=== PATIENT | female | born 1950 | race Caucasian/White ===

== ENCOUNTER → 2017-08-14 | Outpatient (CLI) | payer MEDICARE ==
[~2017-08-14] MED LIST: ALN70T; ASPI-586 PO; CALC1TAB94 PO; DULO30CA; E400C; EST.625T; ESTR1TAB24 PO; FEXO180T84 PO; FISH OIL; FLUO40CA PO; FLUT9.9S NSEACH; LTH300C; METO-387 PO; MRTZ15T; MULT-305 PO; OCUVITE; OMEG1CAP58 PO; PRV20T; TRAZ-28 PO
--- NOTE | 2017-08-15 09:30 | Diagnostic Imaging Report ---
Bilateral screening mammogram 2D views with tomosynthesis The current study was also evaluated with a Computer Aided Detection (CAD) system. INDICATION: Screening. No current complaints stated on the questionnaire. COMPARISON: 08/14/16 FINDINGS: The breasts are composed of scattered fibroglandular densities. Occasional punctate calcifications are seen. Allowing for technique and positional differences, no suspicious change is seen. IMPRESSION: No significant change. ACR BI-RADS Category 2: Benign findings. Result letter will be mailed to the patient. Note: At least 10% of breast cancer is not imaged by mammography. Dictated by: Dictated on workstation # [id number]
== END ==
LOC: RAD 09:31
PROVIDERS: ATTEND Nurse Practitioner
DX: Z12.31 Encounter for screening mammogram for malignant neoplasm of breast (principal)
CPT/HCPCS: 77067

== ENCOUNTER → 2017-10-01 | Outpatient (CLI) | payer MEDICARE ==
[2017-10-01 13:27] LABS: ABSOLUTE RETIC # 38 10e9/L (24-90); BASOPHILS % (AUTO) 1 % (0-10); EOSINOPHILS # (AUTO) 0.1 10^3/uL (0.0-0.3); EOSINOPHILS % (AUTO) 2 % (0-10); HEMATOCRIT 37 % (35-52); HEMOGLOBIN 12.3 G/DL (11.5-16.0); LYMPHOCYTES # (AUTO) 1.2 X 10^3 (1.0-4.0); LYMPHOCYTES % (AUTO) 33 % (12-44); MEAN CORPUSCULAR HEMOGLOBIN 30 PG (25-34); MEAN CORPUSCULAR HGB CONC 33 G/DL (32-36); MEAN CORPUSCULAR VOLUME 89 FL (80-99); MEAN PLATELET VOLUME 10.4 FL (7.4-10.4); MONOCYTES # (AUTO) 0.5 X 10^3 (0.0-1.0); MONOCYTES % (AUTO) 13 % (0-12); NEUTROPHILS # (AUTO) 1.8 X 10^3 (1.8-7.8); NEUTROPHILS % (AUTO) 51 % (42-75); PLATELET COUNT 268 10^3/uL (130-400); RED BLOOD COUNT 4.14 10^6/uL (4.35-5.85); RED CELL DISTRIBUTION WIDTH 13.1 % (10.0-14.5); RETICULOCYTE % 0.91 % (0.50-2.40); WHITE BLOOD COUNT 3.5 10^3/uL (4.3-11.0)
[2017-10-01 14:14] LABS: BAND NEUTROPHILS 0 %; BASOPHILS % (MANUAL) 1 %; EOSINOPHILS % (MANUAL) 3 %; LYMPHOCYTES % (MANUAL) 23 %; MONOCYTES % (MANUAL) 6 %; NEUTROPHILS % (MANUAL) 55 %; RBC MORPH NORMAL; REACTIVE LYMPHOCYTES 12 %
== END ==
LOC: LAB 13:10
PROVIDERS: ATTEND Internal Medicine
DX: D64.9 Anemia, unspecified (principal)
CPT/HCPCS: 36415; 85007; 85027; 85045

== ENCOUNTER → 2017-12-08 | Outpatient (CLI) | payer MEDICARE | LOC: CARD 12:23 | PROVIDERS: ATTEND Internal Medicine Cardiovascular Disease | DX: I35.0 Nonrheumatic aortic (valve) stenosis (principal); R00.1 Bradycardia, unspecified; I49.5 Sick sinus syndrome; E78.5 Hyperlipidemia, unspecified; Z95.0 Presence of cardiac pacemaker | CPT/HCPCS: 93306 ==

== ENCOUNTER 2018-08-03 05:52 | Outpatient (CLI) | payer MEDICARE ==
[~2018-08-03] VITALS: Ht 157.5 cm; Wt 61.2 kg
[~2018-08-03 05:52] MED LIST changes: +TRAZ-189 PO; -TRAZ-28 PO
[2018-08-03] MEDS ORDERED: BETA1TAB15 PO (14:32)
[2018-08-03] MEDS ORDERED: ATOR20TA66 PO (14:32)
[2018-08-03] MEDS ORDERED: LEVO5TAB28 PO (14:32)
[2018-08-03] MEDS ORDERED: [UNRECOGNIZED DRUG - CODE] PO (14:32)
[2018-08-07] MEDS ORDERED: PANT40TA2 PO (13:10)
== END 2018-08-03 14:35 | disposition home or self-care (01) ==
LOC: PREOP 05:52
PROVIDERS: ATTEND Surgery
DX: Z01.818 Encounter for other preprocedural examination (principal)

== ENCOUNTER 2018-08-07 11:00 | Day surgery (SDC) | payer MEDICARE ==
[~2018-08-07] VITALS: Ht 157.5 cm; Wt 61.2 kg
[~2018-08-07 11:00] MED LIST changes: +ATOR20TA66 PO; +BETA1TAB15 PO; +LEVO5TAB28 PO; +[UNRECOGNIZED DRUG - CODE] PO
[2018-08-07 11:10] VITALS: BP 120/70
[2018-08-07] MEDS ORDERED: NS IV 500 ML 500 ML IV PRN (11:14)
[2018-08-07] MEDS ORDERED: HURRICAINE EXT TUBE (BENZOCAINE) XX PRN (11:15)
[2018-08-07] MEDS ORDERED: fentaNYL INJECTION 100 MCG/2 ML AMP IVP ONE (11:15)
[2018-08-07] MEDS ORDERED: MIDAZOLAM 2 MG/2 ML (VERSED) VIAL IVP ONE (11:15)
[2018-08-07] MEDS ORDERED: LIDOCAINE JELLY 2% 6 ML SYRINGE MM PRN (11:15)
[2018-08-07] MEDS ORDERED: NS IV 500 ML 500 ML ONE (11:32)
[2018-08-07] MEDS ORDERED: fentaNYL INJECTION 100 MCG/2 ML AMP ONE (12:10)
[2018-08-07] MEDS ORDERED: LIDOCAINE JELLY 2% 6 ML SYRINGE ONE (12:11)
[2018-08-07] MEDS ORDERED: MIDAZOLAM 2 MG/2 ML (VERSED) VIAL ONE ×3 (12:11)
[2018-08-07] MEDS ORDERED: HURRICAINE EXT TUBE (BENZOCAINE) ONE (12:11)
--- NOTE | 2018-08-07 12:16 | Conscious Sedation/ASA ---
Conscious Sedation Pre-Proced Time 11:30 ASA Score 2 For ASA 3 and 4: Consider anesthesia and medical clearance. Also, for patients with a history of failed moderate sedation consider anesthesia. Airway Lungs Heart ASA score ASA 1: a normal healthy patient ASA 2: a patient with a mild systemic disease (mid diabetes, controlled hypertension, obesity ASA 3: a patient with a severe systemic disease that limits activity (angina , COPD, prior Myocardial infarction) ASA 4: a patient with an incapacitating disease that is a constant threat to life (CHF, renal failure) ASA 5: a moribund patient not expected to survive 24 hrs. (ruptured aneurysm) ASA 6: a declared brain patient whose organs are being harvested. For emergent operations, add the letter E after the classification Mallampati Classification Grade 2 Sedation Plan Analgesia, Amnesia, Plan communicated to team members, Discussed options with patient/fam, Discussed risks with patient/fam The patient is an appropriate candidate to undergo the planned procedure, sedation, and anesthesia. The patient immediately re-assessed prior to indication. DELIA ARCEO MD Aug 07, 2018 12:16 pm
--- NOTE | 2018-08-07 12:17 | Progress Note-Pre Operative ---
Pre-Operative Progress Note H&P Reviewed The H&P was reviewed, patient examined and no changes noted. Date Seen by Provider: Aug 07, 2018 Time Seen by Provider: 11:30 Date H&P Reviewed: Aug 07, 2018 Time H&P Reviewed: 11:30 Pre-Operative Diagnosis: GERD, dysphagia DELIA ARCEO MD Aug 07, 2018 12:17 pm
[2018-08-07] MEDS ORDERED: HYDROcodone/APAP 5 MG/325 MG (LORTAB) TAB PO PRN (12:30)
[2018-08-07] MEDS ORDERED: morphine INJ 10 MG/ML 1ML (SYR OR VIAL) IV PRN (12:30)
[2018-08-07] MEDS ORDERED: ONDANSETRON 4 MG/2 ML (SDV) Z0FRAN IV PRN (12:30)
[2018-08-07] MEDS ORDERED: ACETAMINOPHEN 325 MG TABLET PO PRN (12:30)
[2018-08-07 13:00] VITALS: BP 112/56
[2018-08-07] MEDS ORDERED: PANT40TA2 PO (13:10)
--- NOTE | 2018-08-07 13:10 | Progress Note-Post Operative ---
Post-Operative Progess Note Surgeon (s)/Tank Pumper Panelboard (s) Surgeon DELIA ARCEO MD Tank Pumper Panelboard: none Pre-Operative Diagnosis GERD, dysphagia Post-Operative Diagnosis reflux esophagitis (stage 3), distal esophageal stricture, small-moderate HH(2.5cm), mod-severe gastritis with chronic antral ulcer(4mm). Procedure & Operative Findings Date of Procedure 08/07/18 Procedure Performed/Findings EGD with bx and balloon dilatation. Anesthesia Type CS Estimated Blood Loss Estimated blood loss (mL): minimal Specimens/Packing Specimens Removed antral ulcer, GE jxn DELIA ARCEO MD Aug 07, 2018 1:10 pm
--- NOTE | 2018-08-07 13:12 | Discharge Inst-Surgical ---
D/C Lap Instructions-KIDO New, Converted, or Re-Newed RX: RX on Chart Follow Up Appt in 6 weeks Activity as tolerated High Fiber Diet 25g or more per day Avoid Alcohol, Caffeine, Spicy [place] and Acid foods. Drink 64 fluid oz or more of fluids per day. Symptoms to Report: Fever over 101 degree F, Nausea/Vomiting If any problems/questions: Contact your physician or go to Emergency Room DELIA ARCEO MD Aug 07, 2018 1:11 pm
[2018-08-07 13:30] VITALS: BP 113/57
[2018-08-07 13:38] VITALS: BP 113/57
--- NOTE | 2018-08-07 18:58 | OPERATIVE REPORT ---
DATE OF SERVICE: 08/07/2018 ATTENDING PRIMARY CARE PHYSICIAN: Dr. Antony. PREOPERATIVE DIAGNOSES: Dysphagia, gastroesophageal reflux disease. POSTOPERATIVE DIAGNOSES: Distal esophageal stricture, reflux esophagitis stage III; small to moderate size hiatal hernia 2.5 cm in size. Moderate to severe gastritis with an old chronic antral ulcer. PROCEDURE: EGD with biopsy and balloon dilatation. SURGEON: Delia Arceo MD ANESTHESIA: Conscious sedation. ESTIMATED BLOOD LOSS: Minimal. FINDINGS: Reflux esophagitis stage III with a distal esophageal stricture, hiatal hernia approximately 2.5 cm in size. There was a moderate to severe gastritis and an old chronic antral ulcer, which was small, approximately 3 mm in size. Pylorus and duodenum appeared normal with no distal obstructions. DISPOSITION: The patient tolerated the procedure well. INDICATION: The patient is a 68-year-old female, who we have been seeing before in the past. She underwent a screening colonoscopy in 2015 and was found to have chronic stage II external and internal hemorrhoids as well as early sigmoid diverticulosis; however, no other abnormalities. She was then seen in the office and had dysphagia and epigastric burning sensation consistent with gastroesophageal reflux disease as well as dysphagia and stricture. She reports that acidic foods make her symptoms worse. DESCRIPTION OF PROCEDURE: The patient was brought to the endoscopy suite, laid in the left lateral decubitus position. After adequate IV pain and sedating medications and conscious sedation anesthesia, the mouthpiece was applied. The endoscope was placed in the mouth, visualizing the pharynx and hypopharyngeal region. Vocal cords, epiglottis and vallecula identified and appeared to be normal. The endoscope was then gently intubated at the esophageal opening and esophagus was insufflated. The endoscope was then advanced to the first, second and third portion of the esophagus at the level of the GE junction, a reflux esophagitis stage III identified with a distal esophageal stricture identified. This was biopsied using forceps with visualization of good hemostasis. The endoscope was then advanced in the stomach and endoscope retroflexed, visualizing a small to moderate size hiatal hernia, approximately 2.5 cm in size. There was a moderate to severe gastritis more towards the stomach antrum with a chronic healed antral ulcer, which was small, approximately 3 mm in size. This was biopsied using forceps with visualization of good hemostasis. The endoscope was then advanced to the pylorus and the first and second portions of duodenum, which appeared normal with no distal obstructions. We then proceeded with the dilatation of the esophageal stricture. The balloon was directed into the stomach and pulled back to the area of the stricture. We first proceeded to 2 atmospheres of pressure of 18 mm in circumferential diameter with minimal resistance. We then proceeded to 4 atmospheres of pressure or 19 mm in diameter with moderate resistance and left this in place for approximately 60 seconds. The balloon was then decompressed and removed with visualization of good hemostasis as well as no mucosal tears. The endoscope was then slowly withdrawn while taking a second look and suctioning of residual air with no additional findings. The patient tolerated the procedure well. We will recommend the necessary lifestyle and diet accommodation including small and more frequent meals, avoiding eating at night as well as head elevation while lying supine. She also needs to avoid caffeinated beverages, spicy, greasy and acidic foods. We will await the biopsy results; however, she does produce much acid based on the location of her ulcer and we will start her on Protonix 40 mg daily. Job ID: [id number] DocumentID: [id number] Dictated Date: 08/07/2018 12:43:10 Commercial Sales Specialist Date: 08/07/2018 18:57:16 Dictated By: DELIA ARCEO MD
== END 2018-08-07 13:40 | disposition home or self-care (01) ==
LOC: ENDO 11:00
PROVIDERS: ATTEND Surgery
DX: K22.2 Esophageal obstruction (principal); K21.0 Gastro-esophageal reflux disease with esophagitis; K44.9 Diaphragmatic hernia without obstruction or gangrene; K29.70 Gastritis, unspecified, without bleeding; I10 Essential (primary) hypertension; F32.9 Major depressive disorder, single episode, unspecified; I49.5 Sick sinus syndrome; E78.5 Hyperlipidemia, unspecified; K59.00 Constipation, unspecified; M81.0 Age-related osteoporosis without current pathological fracture; Z95.0 Presence of cardiac pacemaker; Z79.899 Other long term (current) drug therapy; Z79.82 Long term (current) use of aspirin
CPT/HCPCS: 88305; 88342

== ENCOUNTER → 2018-08-17 | Outpatient (CLI) | payer MEDICARE ==
[~2018-08-17] MED LIST changes: +PANT40TA2 PO
--- NOTE | 2018-08-18 10:45 | Diagnostic Imaging Report ---
Digital mammogram. Bilateral screening with 3-D tomosynthesis. This study was compared to the prior exam of 08/14/2017, 08/14/2016 and 08/10/2015. At this time there are no current complaints. FINDINGS: The fibroglandular tissue in both breasts is heterogeneously dense. This does limit the sensitivity of this exam. Overall, there does not appear to have been any significant change when compared to the prior study. No primary or secondary sign of malignancy is noted. The nodular density in the lateral aspect of the right breast seen on the previous study is again evident and has not changed adversely. IMPRESSION: There is no radiographic evidence for malignancy. ACR BI-RADS Category 1: Negative. Result letter will be mailed to the patient. Note: At least 10% of breast cancer is not imaged by mammography. Dictated by: Dictated on workstation # [id number]
== END ==
LOC: RAD 10:10
PROVIDERS: ATTEND Internal Medicine
DX: Z12.31 Encounter for screening mammogram for malignant neoplasm of breast (principal)
CPT/HCPCS: 77067

== ENCOUNTER 2018-09-30 05:42 | Outpatient (CLI) | payer MEDICARE ==
[~2018-09-30] VITALS: Ht 157.5 cm; Wt 61.2 kg
== END 2018-09-30 13:47 | disposition home or self-care (01) ==
LOC: PREOP 05:42
PROVIDERS: ATTEND Surgery
DX: Z01.818 Encounter for other preprocedural examination (principal)

== ENCOUNTER 2018-10-07 09:52 | Day surgery (SDC) | payer MEDICARE ==
[~2018-10-07] VITALS: Ht 157.5 cm; Wt 61.2 kg
[2018-10-07] MEDS ORDERED: NS IV 500 ML 500 ML ONE (10:02)
[2018-10-07] MEDS ORDERED: NS IV 500 ML 500 ML IV PRN (10:14)
[2018-10-07] MEDS ORDERED: HURRICAINE EXT TUBE (BENZOCAINE) XX PRN (10:15)
[2018-10-07] MEDS ORDERED: MIDAZOLAM 2 MG/2 ML (VERSED) VIAL IVP ONE (10:15)
[2018-10-07] MEDS ORDERED: LIDOCAINE JELLY 2% 6 ML SYRINGE MM PRN (10:15)
[2018-10-07] MEDS ORDERED: fentaNYL INJECTION 100 MCG/2 ML AMP IVP ONE (10:15)
[2018-10-07 10:17] VITALS: BP 122/60
--- NOTE | 2018-10-07 10:21 | Conscious Sedation/ASA ---
Conscious Sedation Pre-Proced Time 10:00 ASA Score 2 For ASA 3 and 4: Consider anesthesia and medical clearance. Also, for patients with a history of failed moderate sedation consider anesthesia. Airway Lungs Heart ASA score ASA 1: a normal healthy patient ASA 2: a patient with a mild systemic disease (mid diabetes, controlled hypertension, obesity ASA 3: a patient with a severe systemic disease that limits activity (angina , COPD, prior Myocardial infarction) ASA 4: a patient with an incapacitating disease that is a constant threat to life (CHF, renal failure) ASA 5: a moribund patient not expected to survive 24 hrs. (ruptured aneurysm) ASA 6: a declared brain patient whose organs are being harvested. For emergent operations, add the letter E after the classification Mallampati Classification Grade 2 Sedation Plan Analgesia, Amnesia, Plan communicated to team members, Discussed options with patient/fam, Discussed risks with patient/fam The patient is an appropriate candidate to undergo the planned procedure, sedation, and anesthesia. The patient immediately re-assessed prior to indication. DELIA ARCEO MD Oct 07, 2018 10:21
--- NOTE | 2018-10-07 10:22 | Progress Note-Pre Operative ---
Pre-Operative Progress Note H&P Reviewed The H&P was reviewed, patient examined and no changes noted. Date Seen by Provider: Oct 07, 2018 Time Seen by Provider: 10:00 Date H&P Reviewed: Oct 07, 2018 Time H&P Reviewed: 10:00 Pre-Operative Diagnosis: dysphagia DELIA ARCEO MD Oct 07, 2018 10:22
[2018-10-07] MEDS ORDERED: morphine INJ 10 MG/ML 1ML (SYR OR VIAL) IV PRN (10:30)
[2018-10-07] MEDS ORDERED: HYDROcodone/APAP 5 MG/325 MG (LORTAB) TAB PO PRN (10:30)
[2018-10-07] MEDS ORDERED: ONDANSETRON 4 MG/2 ML (SDV) Z0FRAN IV PRN (10:30)
[2018-10-07] MEDS ORDERED: ACETAMINOPHEN 325 MG TABLET PO PRN (10:30)
[2018-10-07] MEDS ORDERED: fentaNYL INJECTION 100 MCG/2 ML AMP ONE (10:50)
[2018-10-07] MEDS ORDERED: MIDAZOLAM 2 MG/2 ML (VERSED) VIAL ONE ×4 (10:50→11:34)
[2018-10-07] MEDS ORDERED: LIDOCAINE JELLY 2% 6 ML SYRINGE ONE (10:50)
[2018-10-07] MEDS ORDERED: HURRICAINE EXT TUBE (BENZOCAINE) ONE (10:51)
[2018-10-07 11:55] VITALS: BP 110/58
--- NOTE | 2018-10-07 12:01 | Progress Note-Post Operative ---
Post-Operative Progess Note Surgeon (s)/Senior Attorney (s) Surgeon DELIA ARCEO MD Senior Attorney: none Pre-Operative Diagnosis dysphagia Post-Operative Diagnosis reflux esophagitis(stage 2), mild distal esophageal stricture, small HH(2cm), mild-mod gastritis. Procedure & Operative Findings Date of Procedure 10/07/18 Procedure Performed/Findings EGD with bx and balloon dilatation. Anesthesia Type CS Estimated Blood Loss Estimated blood loss (mL): minimal Specimens/Packing Specimens Removed antrum, GE jxn DELIA ARCEO MD Oct 07, 2018 12:01
--- NOTE | 2018-10-07 12:04 | Discharge Inst-Surgical ---
D/C Lap Instructions-ADIS Follow Up PRN Activity as tolerated High Fiber Diet 25g or more per day Avoid Alcohol, Caffeine, Spicy [place] and Acid foods. Drink 64 fluid oz or more of fluids per day. Symptoms to Report: Fever over 101 degree F, Nausea/Vomiting If any problems/questions: Contact your physician or go to Emergency Room DELIA ARCEO MD Oct 07, 2018 12:04
[2018-10-07 12:48] VITALS: BP 111/59
--- NOTE | 2018-10-07 19:56 | OPERATIVE REPORT ---
DATE OF SERVICE: 10/07/2018 ATTENDING PRIMARY CARE PHYSICIAN: Dr. Antony. PREOPERATIVE DIAGNOSES: 1. Esophageal stricture. 2. Small to moderate size hiatal hernia. 3. History of gastric ulcer. POSTOPERATIVE DIAGNOSES: Reflux esophagitis stage II, mild esophageal stricture, small to moderate size hiatal hernia approximately 2 cm in size, mild to moderate gastritis, no ulcers. PROCEDUREs: EGD with biopsy and balloon dilatation. SURGEON: Delia Arceo MD ANESTHESIA: Conscious sedation. ESTIMATED BLOOD LOSS: Minimal. FINDINGS: Reflux esophagitis stage II, mild esophageal stricture, small to moderate size hiatal hernia approximately 2 cm in size, mild to moderate gastritis. No formal ulcerations, polyps or any neoplasms. DISPOSITION: The patient tolerated the procedure well. INDICATIONS: The patient is a 68-year-old female with a history of dysphagia as well as gastroesophageal reflux disease and known stricture. She underwent an EGD on 08/07/2018 and found to have a distal esophageal stricture, reflux esophagitis stage II as well as a small to moderate size hiatal hernia 2.5 cm in size. Biopsies of the GE junction were negative for Tena's esophagus and biopsies of the stomach antrum were negative for H. pylori. She states that since the dilatation, she has not had any issues with dysphagia. She was dilated to 19 mm at the time. She was also found to have a chronic old antral ulcer, which did not show any signs of malignancy. She is here for reevaluation of the ulcer as well as a greater dilatation. DESCRIPTION OF PROCEDURE: The patient was brought to the endoscopy suite, laid in the left lateral decubitus position. After adequate IV pain and sedative medications and conscious sedation anesthesia, the mouthpiece was applied. The endoscope was placed in the mouth, visualizing the pharynx and hypopharyngeal region. Vocal cords, epiglottis and vallecula identified and appeared to be normal. The endoscope was then gently intubated. Esophageal opening and esophagus insufflated. The endoscope was then advanced to the first, second and third portion of the esophagus at the level of the GE junction, and a reflux esophagitis stage II identified. Just above this appeared to be a mild stricture, which did not appear to be secondary to Schatzki's ring; however, more likely secondary to muscle contractions. A biopsy was taken of the GE junction with forceps with visualization of good hemostasis. The endoscope was then advanced in the stomach and endoscope retroflexed again visualizing a small hiatal hernia approximately 2 cm in size. There was a mild to moderate gastritis. No formal ulcerations, polyps or any neoplasms. A biopsy was taken of the antrum to rule out H. pylori with visualization of good hemostasis. The endoscope was then advanced to the pylorus and first and second portion of the duodenum, which appeared normal with no distal obstructions as well as no ulcerations. We then proceeded with the dilatation of the esophageal stricture. The balloon was placed into the stomach and pulled back to the area of the stricture. We first proceeded to 2 atmospheres of pressure or 18 mm in circumferential diameter with no resistance. We then proceeded to 4 atmospheres with or 19 mm with mild resistance. We then proceeded to 6 atmospheres of pressure and 20 mm in diameter with moderate resistance and left this in place for approximately 60 seconds. The balloon was then desufflated and removed with visualization of good hemostasis as well as no mucosal tears. The endoscope was then withdrawn while taking a second look and suctioning of residual air with no additional findings. The patient tolerated the procedure well. We will recommend medical management with the necessary lifestyle and diet accommodation including small and more frequent meals, avoidance of eating at night as well as head elevation while lying supine. She also needs to avoid caffeinated beverages, spicy, greasy and acidic foods as well as take her acid automotive leasing sales representative on a daily basis. If she is asymptomatic, she does not need any further intervention; however, if she does have recurrent episodes of dysphagia, we will proceed again with graded dilatation. Job ID: [id number] DocumentID: [id number] Dictated Date: 10/07/2018 11:51:15 Furniture Technician Date: 10/07/2018 19:55:31 Dictated By: DELIA ARCEO MD
== END 2018-10-07 12:50 | disposition home or self-care (01) ==
LOC: ENDO 09:52
PROVIDERS: ATTEND Surgery
DX: K22.2 Esophageal obstruction (principal); K21.0 Gastro-esophageal reflux disease with esophagitis; K44.9 Diaphragmatic hernia without obstruction or gangrene; K29.70 Gastritis, unspecified, without bleeding; I10 Essential (primary) hypertension; F32.9 Major depressive disorder, single episode, unspecified; I49.5 Sick sinus syndrome; E78.5 Hyperlipidemia, unspecified; K59.00 Constipation, unspecified; M81.0 Age-related osteoporosis without current pathological fracture; Z88.2 Allergy status to sulfonamides; Z79.899 Other long term (current) drug therapy

== ENCOUNTER 2019-06-15 07:53 | Day surgery (SDC) | payer MEDICARE ==
[~2019-06-15] VITALS: Ht 62 cm; Wt 132.0 kg
[2019-06-15] VITALS (10 sets, daily range): BP systolic 100–127; BP diastolic 55–69
[~2019-06-15 07:53] MED LIST changes: -TRAZ-189 PO; +TRAZ-222 PO
[2019-06-15] MEDS ORDERED: HEParin (CATH LAB) 1,000 ML IV ONE (07:58)
[2019-06-15] MEDS ORDERED: LIDOCAINE 1% INJ 20 ML 20 ML VIAL ONE (07:58)
[2019-06-15] MEDS ORDERED: NS IV 1000 ML 1,000 ML ONE (07:58)
[2019-06-15] MEDS ORDERED: PANT40TA2 PO (08:38)
[2019-06-15] MEDS ORDERED: FLUO10CA29 PO (08:38)
[2019-06-15 08:39] LABS: HEMOGLOBIN 12.4 G/DL (11.5-16.0); MEAN PLATELET VOLUME 11.5 FL (7.4-10.4); RED CELL DISTRIBUTION WIDTH 12.9 % (10.0-14.5); WHITE BLOOD COUNT 3.6 10^3/uL (4.3-11.0)
[2019-06-15] MEDS: NS IV 1000 ML 1,000 ML IV SCH ×3 (08:40→09:16)
[2019-06-15] MEDS ORDERED: ACET-2650 PO (08:41)
[2019-06-15] MEDS ORDERED: ceFAZolin INJECTION 1,000 MG ONE (08:42)
--- NOTE | 2019-06-15 08:46 | NUR ---
SPOKE WITH THE PT (SHE BROUGHT HER BOTTLES) TO COMPLETE THE MED REC. EVERYTHING WAS OF GOOD DATING AND PT WAS ABLE TO TELL ME HOW SHE TAKES THEM. OTC MEDS: TYLENOL ARTHRITIS: 2 BID ASPIRIN 81M DAILY CALCIUM WITH VIT D: 1 DAILY FLONASE: UD MULTIVITAMIN: 1 DAILY PRESERVISION: 1 DAILY
[2019-06-15] MEDS ORDERED: BACITRACIN INJECTION 50,000 UNIT, SODIUM CHLORIDE 0.9% IRRIGATIO 500 ML IR ONE ×2 (09:00)
[2019-06-15] MEDS ORDERED: BACITRACIN 50000 UNITS/500 ML NS IR ONE ×2 (09:15)
[2019-06-15 09:20] LABS: ALANINE AMINOTRANSFERASE 25 U/L (0-55); ALBUMIN 4.5 GM/DL (3.2-4.5); ALKALINE PHOSPHATASE 60 U/L (40-136); BILIRUBIN,TOTAL 0.5 MG/DL (0.1-1.0); BUN/CREATININE RATIO 16; CALCIUM 9.3 MG/DL (8.5-10.1); CARBON DIOXIDE 26 MMOL/L (21-32); CHLORIDE 105 MMOL/L (98-107); CHOLESTEROL 159 MG/DL (< 200); CREATININE SERUM 0.81 MG/DL (0.60-1.30); GFR ESTIMATED > 60; GLUCOSE 85 MG/DL (70-105); HDL CHOLESTEROL 67 MG/DL (40-60); POTASSIUM 3.6 MMOL/L (3.6-5.0); SODIUM 140 MMOL/L (135-145); TOTAL PROTEIN 7.8 GM/DL (6.4-8.2); TRIGLYCERIDES 78 MG/DL (<150); VLDL CHOLESTEROL 16 MG/DL (5-40)
[2019-06-15 09:30] LABS: INR 0.9 (0.8-1.4); PROTHROMBIN TIME PATIENT 12.4 SEC (12.2-14.7)
[2019-06-15] MEDS ORDERED: MIDAZOLAM 5 MG/5 ML (VERSED) VIAL ONE (11:07)
[2019-06-15] MEDS ORDERED: fentaNYL INJECTION 100 MCG/2 ML AMP ONE (11:08)
--- NOTE | 2019-06-15 11:27 | Cardiac Procedure Note-CS/ASA ---
Pre-Procedure Note Pre-Op Procedure Note H&P Reviewed The H&P was reviewed, patient examined and no changes noted. Date H&P Reviewed: Jun 15, 2019 Time H&P Reviewed: 11:27 Conscious Sedation Pre-Proced Time 11:27 ASA Score 3 For ASA 3 and 4: Consider anesthesia and medical clearance. Also, for patients with a history of failed moderate sedation consider anesthesia. Airway Lungs Heart ASA score ASA 1: a normal healthy patient ASA 2: a patient with a mild systemic disease (mid diabetes, controlled hypertension, obesity ASA 3: a patient with a severe systemic disease that limits activity (angina, COPD, prior Myocardial infarction) ASA 4: a patient with an incapacitating disease that is a constant threat to life (CHF, renal failure) ASA 5: a moribund patient not expected to survive 24 hrs. (ruptured aneurysm) ASA 6: a declared brain- patient whose organs are being harvested. For emergent operations, add the letter E after the classification Mallampati Classification Grade 2 Sedation Plan Analgesia, Amnesia, Plan communicated to team members, Discussed options with patient/fam, Discussed risks with patient/fam The patient is an appropriate candidate to undergo the planned procedure, sedation, and anesthesia. The patient immediately re-assessed prior to indication. ELVIN RODRIGUES MD FACP FAC CCDS Jun 15, 2019 11:27
[2019-06-15] MEDS ORDERED: NEO/POLY/BAC (NEOSPORIN) OINT 15 GM TUBE ONE (12:30)
[2019-06-15] MEDS ORDERED: NS IV 1000 ML 1,000 ML IV SCH (13:03)
[2019-06-15] MEDS ORDERED: CEFU500T63 PO (13:05)
--- NOTE | 2019-06-15 13:07 | Discharge Inst-Cardiology ---
Discharge Inst-Cardiac Problems Reviewed?: Yes Discharge Medications New Medications: Cefuroxime Axetil (Cefuroxime) 500 Mg Tablet 500 MG PO BID, #10 TAB 1 Refill Continued Medications: Acetaminophen (Tylenol Arthritis) 650 Mg Tablet.er 1300 MG PO BID PRN for PAIN-MILD, TAB Aspirin (Aspir 81) 81 Mg Tablet.dr 81 MG PO DAILY, TAB Atorvastatin Calcium (Atorvastatin Calcium) 20 Mg Tablet 20 MG PO HS, TAB Calcium Carbonate/Vitamin D3 (Calcium 600 + Vit D 400 Tablet) 1 Each Tablet 1 EACH PO DAILY, TAB Estradiol (Estradiol Tablet) 1 Mg Tablet 1 MG PO DAILY, TAB Fluoxetine HCl (Fluoxetine HCl) 40 Mg Capsule 40 MG PO DAILY, CAP TAKES ALONG WITH A 10MG TO EQUAL 50MG DAILY Fluoxetine HCl (Prozac) 10 Mg Capsule 10 MG PO DAILY, CAP TAKES ALONG WITH A 40MG TO EQUAL A 50MG DAILY Fluticasone Propionate (Flonase Allergy Relief) 9.9 Ml [place].susp 2 SPR NSEACH DAILY, SPRAY Levocetirizine Dihydrochloride (Xyzal) 5 Mg Tablet 5 MG PO HS, TAB Metoprolol Succinate (Metoprolol Succinate) 25 Mg Tab.er.24h 12.5 MG PO DAILY, TAB TAKE 1/2 OF 25MG TAB Multivit with Calcium,Iron,Min (Maximum Daily Multivitamin) 1 Each Tablet 1 EACH PO DAILY, TAB Pantoprazole Sodium (Protonix) 40 Mg Tablet.dr 40 MG PO DAILY, TAB Trazodone HCl (Trazodone HCl) 50 Mg Tablet 50 MG PO HS, TAB Vit A/Vit C/Vit E/Zinc/Copper (Preservision Areds Tablet) 1 Each Tablet 1 EACH PO DAILY, TAB Patient Instructions Patient Instructions: F/u with Dr Gomez in 2 weeks F/u at Dr Gomez's for wound check on 06/18/19 ELVIN GOMEZ MD [facility] Jun 15, 2019 13:07
[2019-06-15] MEDS ORDERED: PATIENT MAY USE OWN MEDS, ALL PO SCH (13:15)
--- NOTE | 2019-06-15 13:43 | NUR ---
AT 1320 WAS REPORTED TO THIS RN FROM VIRA CUBA THAT PATIENTS FAMILY MEMBER IS UNABLE TO TAKE PATIENT HOME DUE TO ANOTHER FAMILY MEMBER BEING IN HOSPITAL AND THAT PATIENT WAS TO TAKE TAXI HOME AND LIVES HERE IN [place]. THIS RN PHONED TIMING INSPECTOR AND SPOKE WITH VIRA GALLEGOS AT THIS TIME AND ASKED ABOUT PATIENT'S SEDATION AND NEEDED TO KNOW IF WAS AROUND AND OK WITH IT. ROSY STATES DR IS OK WITH PATIENT TAKING TAXI HOME.
--- NOTE | 2019-06-15 14:47 | Diagnostic Imaging Report ---
INDICATION: Cardiac device placement. TIME OF EXAM: 1:20 PM COMPARISON: Correlation is made with prior chest from 04/17/2007. FINDINGS: Left subclavian cardiac pacer has lead tips in the region of right atrium and right ventricle. Lungs are clear. No effusion or pneumothorax. IMPRESSION: No acute cardiopulmonary process is detected. Dictated by: Dictated on workstation # [id number]
--- NOTE | 2019-06-15 17:15 | OPERATIVE REPORT ---
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 POSTOPERATIVE DIAGNOSIS: Pulse generator change. PROCEDURE: Dual chamber pacemaker pulse generator replacement. INDICATIONS: The patient is a 69-year-old lady, who had a dual chamber pacemaker implanted several years ago for a long asystolic pauses and syncope. The pacemaker is now at elective replacement indicator. Informed consent was obtained. DESCRIPTION OF THE PROCEDURE: She was brought to the cardiac catheterization laboratory. The left prepectoral area, the site of her pacemaker implantation, was prepared and draped in the usual sterile fashion. Lidocaine 1% was used for local anesthesia. Sharp and blunt dissection was used to open the pacemaker pocket and the pacemaker was removed from the pocket. The pacemaker was detached from the leads. A new pulse generator was attached. The generator removed is a [employer] model 1294 with serial #[id number]. The new pulse generator is [employer] Accolade MRI DRIS-1 pacemaker with model #L331 and serial #[id number]. The pocket was thoroughly irrigated with an antibiotic solution and slightly expanded because the new pulse generator is of slightly larger size than the old pacemaker. Good capture and sensing thresholds were obtained. The pacemaker was placed in the pocket and the pocket was closed in two layers using 3.0 Vicryl. The right atrial lead measures P waves at 1.7 millivolts and the capture thresholds at 0.7 volts at 0.4 milliseconds, lead impedance is 478 ohms. The right ventricular lead measures R waves at 9.8 millivolts and the capture threshold was 1.4 volts at 1 millisecond and the pacing impedance is 470 ohms. The patient tolerated the procedure well. The pacemaker is in the DDD mode with a lower rate limit of 60 beats per minute and a maximum tracking rate of 125 beats per minute. The patient remained stable following the procedure. Job ID: [id number] DocumentID: [id number] Dictated Date: 06/15/2019 12:56:42 Can Maker Date: 06/15/2019 17:14:51 Dictated By: ELVIN RODRIGUES MD, MA, FACP, FACC, MTDD
== END 2019-06-15 16:20 | disposition home or self-care (01) ==
LOC: CATH 07:53 → SDC 13:23 → CATH 16:20
PROVIDERS: ATTEND Internal Medicine Cardiovascular Disease
DX: Z45.010 Encounter for checking and testing of cardiac pacemaker pulse generator [battery] (principal); I49.5 Sick sinus syndrome; I95.9 Hypotension, unspecified; E78.1 Pure hyperglyceridemia; E78.5 Hyperlipidemia, unspecified; M19.90 Unspecified osteoarthritis, unspecified site; F41.9 Anxiety disorder, unspecified; Z88.2 Allergy status to sulfonamides; Z79.899 Other long term (current) drug therapy; Z88.8 Allergy status to other drugs, medicaments and biological substances; Z79.82 Long term (current) use of aspirin; Z82.3 Family history of stroke
CPT/HCPCS: 33263; 36415; 71046; 80053; 80061; 85027; 85610; 85730; 87081; 93005

== ENCOUNTER → 2019-08-19 | Outpatient (CLI) | payer MEDICARE ==
[~2019-08-19] MED LIST changes: +ACET-2650 PO; +CEFU500T63 PO; +FLUO10CA29 PO
--- NOTE | 2019-08-19 11:06 | Diagnostic Imaging Report ---
INDICATION: Routine screening. COMPARISON: Comparison is made with prior mammograms from 08/17/2018 and 08/14/2017. TECHNIQUE: 2-D and 3-D bilateral screening mammography was performed. The current study was also evaluated with a Computer Aided Detection (CAD) system. 3-D tomosynthesis was also performed and reviewed. FINDINGS: Scattered fibroglandular densities are identified bilaterally. Tiny circumscribed density in the medial left breast is stable. Overall breast parenchymal pattern appears to be stable. No spiculated mass or malignant-appearing microcalcifications are seen. Axillae are unremarkable. IMPRESSION: No mammographic features suspicious for malignancy are identified. ACR BI-RADS Category 2: Benign findings. Result letter will be mailed to the patient. Note: At least 10% of breast cancer is not imaged by mammography. Dictated by: Dictated on workstation # [id number]
== END ==
LOC: RAD 09:55
PROVIDERS: ATTEND Internal Medicine
DX: Z12.31 Encounter for screening mammogram for malignant neoplasm of breast (principal)
CPT/HCPCS: 77067

== ENCOUNTER → 2020-08-21 | Outpatient (CLI) | payer MEDICARE ==
[~2020-08-21] MED LIST changes: +CALC-664 PO; -CALC1TAB94 PO; -METO-387 PO; +MTP25TSR PO; -TRAZ-222 PO; +TRZ50T PO
== END ==
LOC: CARD 09:22
PROVIDERS: ATTEND Internal Medicine Cardiovascular Disease
DX: I08.2 Rheumatic disorders of both aortic and tricuspid valves (principal)
CPT/HCPCS: 93306

== ENCOUNTER → 2020-08-21 | Outpatient (CLI) | payer MEDICARE ==
--- NOTE | 2020-08-21 11:13 | Diagnostic Imaging Report ---
INDICATION: Screening. TECHNIQUE: The current study was also evaluated with a Computer Aided Detection (CAD) system. 3-D Tomographic imaging was also performed. COMPARISON: 08/19/2019, 08/07/2018, and 08/14/2017. FINDINGS: There are scattered fibroglandular densities bilaterally. There is no dominant mass, spiculated lesion, or suspicious calcification identified. The skin, nipples, and axillae are unremarkable. IMPRESSION: Negative. ACR BI-RADS Category 1: Negative. Result letter will be mailed to the patient. Note: At least 10% of breast cancer is not imaged by mammography. Dictated by: Dictated on workstation # [id number]
== END ==
LOC: RAD 09:20
PROVIDERS: ATTEND Internal Medicine
DX: Z12.31 Encounter for screening mammogram for malignant neoplasm of breast (principal)
CPT/HCPCS: 77063; 77067

== ENCOUNTER → 2021-08-22 | Outpatient (CLI) | payer MEDICARE ==
[~2021-08-22] MED LIST changes: +CALC-1026 PO; -CALC-664 PO
--- NOTE | 2021-08-22 10:50 | Diagnostic Imaging Report ---
Indication: Routine screening Comparison is made with prior exam from 08/21/2020 and 08/19/2019. 2-D and 3-D bilateral screening mammography was performed with CAD. Scattered fibroglandular densities are identified bilaterally. The parenchymal pattern is stable. No mass or malignant-appearing microcalcifications are seen. Axillae are unremarkable. IMPRESSION: BI-RADS Category 1 No mammographic features suspicious for malignancy are identified. ACR BI-RADS Category 1: Negative. Result letter will be mailed to the patient. Note: At least 10% of breast cancer is not imaged by mammography. Dictated by: Dictated on workstation # [id number]
== END ==
LOC: RAD 09:45
PROVIDERS: ATTEND Nurse Practitioner Family
DX: Z12.31 Encounter for screening mammogram for malignant neoplasm of breast (principal)
CPT/HCPCS: 77063; 77067

== ENCOUNTER → 2022-08-26 | Outpatient (CLI) | payer MEDICARE ==
--- NOTE | 2022-08-29 08:17 | Diagnostic Imaging Report ---
INDICATION: Routine screening. COMPARISON: 08/22/2021 and 08/21/2020. TECHNIQUE: 2D and 3D bilateral screening mammography was performed with CAD. FINDINGS: Scattered fibroglandular densities are identified bilaterally. The parenchymal pattern is stable. No mass or malignant-appearing microcalcifications are seen. The axillae are unremarkable. IMPRESSION: No mammographic features suspicious for malignancy are identified. ACR BI-RADS Category 1: Negative. Result letter will be mailed to the patient. Note: At least 10% of breast cancer is not imaged by mammography. Dictated by: Dictated on workstation # [id number]
== END ==
LOC: RAD 09:41
PROVIDERS: ATTEND Internal Medicine
DX: Z12.31 Encounter for screening mammogram for malignant neoplasm of breast (principal)
CPT/HCPCS: 77063; 77067

== ENCOUNTER → 2022-12-04 | Outpatient (CLI) | payer MEDICARE | LOC: CARD 12:17 | PROVIDERS: ATTEND Nurse Practitioner Family | DX: I08.3 Combined rheumatic disorders of mitral, aortic and tricuspid valves (principal) | CPT/HCPCS: 93306 ==

== ENCOUNTER → 2023-04-29 | Outpatient (CLI) | payer MEDICARE ==
--- NOTE | 2023-04-29 07:58 | Diagnostic Imaging Report ---
INDICATION: Postmenopausal state. COMPARISON: 01/23/2005 FINDINGS: AP Spine L1-L4: [BMD (g/cm2): 1.130] [T-Score: -0.6] [Z-Score: 1.4] [BMD Previous: 0.951] [BMD % Change: 18.8*] LT Hip Neck: [BMD (g/cm2): 0.983] [T-Score: -0.4] [Z-Score: 1.5] LT Hip Total: [BMD (g/cm2):1.027] [T-Score:0.2] [Z-Score: 1.9] [BMD Previous: 0.847] [BMD % Change: 21.3*] RT Hip Neck: [BMD (g/cm2):1.049] [T-Score:0.1] [Z-Score:2.0] RT Hip Total: [BMD (g/cm2):1.078] [T-score:0.6] [Z-Score:2.3] [BMD Previous:0.876] [BMD % Change:23.1*] *Indicates significant change from prior examination based on 95% confidence level. World Health Organization criteria for BMD interpretation classify patients as Normal (T-score at or above -1.0), Osteopenic (T-score between -1.0 and -2.5) or Osteoporotic (T-score at or below -2.5). LIMITATIONS AND MODIFICATION: [place] left curvature of the spine with associated degenerative changes noted. IMPRESSION: 1. Normal bone mineral density. 2. There has been a statistically significant increase in BMD since prior exam, detailed above. 3. See below National Osteoporosis Foundation guidelines on when to potentially initiate pharmacologic therapy. Based on the National Osteoporosis Foundation Guidelines, pharmacologic treatment should be initiated in any of the following, unless clinical conditions suggest otherwise: * Any patient with prior fragility fracture of the hip or vertebrae. A spine fracture indicates 5X risk for subsequent spine fracture and 2X risk for subsequent hip fracture. * Osteoporosis (T-score <-2.5). * Postmenopausal women and men age 50 and older with low bone mass/osteopenia (T-score between -1.0 and -2.5) by DXA and 10-year major osteoporotic fracture greater than 20% or a 10-year probability of hip fracture greater than 3%. These fracture risks are supplied above in the FRAX score, if applicable. * Clinician judgement and/or patient preferences may indicate treatment for people with 10-year fracture probabilities above or below these levels. Dictated by: Dictated on workstation # [id number]
== END ==
LOC: RAD 08:30
PROVIDERS: ATTEND Internal Medicine
DX: M81.0 Age-related osteoporosis without current pathological fracture (principal); Z78.0 Asymptomatic menopausal state
CPT/HCPCS: 77080

== ENCOUNTER → 2023-05-30 | Outpatient (CLI) | payer MEDICARE | LOC: CARD 11:00 | PROVIDERS: ATTEND Nurse Practitioner Family | DX: I35.0 Nonrheumatic aortic (valve) stenosis (principal) | CPT/HCPCS: 93306 ==

== ENCOUNTER → 2023-08-27 | Outpatient (CLI) | payer MEDICARE ==
--- NOTE | 2023-08-27 14:51 | Diagnostic Imaging Report ---
INDICATION: Routine screening. COMPARISON: 08/26/2022 and 08/22/2021. TECHNIQUE: 2D and 3D bilateral screening mammography was performed with CAD. FINDINGS: Scattered fibroglandular densities are identified bilaterally. A focal small rounded density in the outer right breast is stable. No new mass or malignant-appearing microcalcifications are identified. The axillae are unremarkable. IMPRESSION: No mammographic features suspicious for malignancy are identified. ACR BI-RADS Category 2: Benign findings. Result letter will be mailed to the patient. Note: At least 10% of breast cancer is not imaged by mammography. Dictated by: Dictated on workstation # [id number]
== END ==
LOC: RAD 09:34
PROVIDERS: ATTEND Obstetrics & Gynecology
DX: Z12.31 Encounter for screening mammogram for malignant neoplasm of breast (principal)
CPT/HCPCS: 77063; 77067